=== PATIENT | female | born 1995 | race Two or more races ===

== ENCOUNTER → 2024-06-17 | Outpatient (CLI) | payer BC, SELFPAY ==
--- NOTE | 2024-06-17 16:00 | XR_ITS ---
Examination: Breast ultrasound, unilateral, right Date and time of exam: June 17, 2024 1557 hrs. Indications: Breast sonography November 14, 2023 right breast 4:00 nodule 7 mm Technique: Real-time starkey scale ultrasonographic imaging performed right breast including all 4 quadrants as well as nipple retroareolar and axillary region. Findings: 1:00 oval mass circumscribed 6 x 8 mm Impression: BI-RADS Category 2: Benign findings
== END | disposition home or self-care (01) ==
LOC: CDIM 15:48
PROVIDERS: PCP Registered Nurse; Referring Provider Registered Nurse; Visit Provider Registered Nurse
DX: N63.10 Unspecified lump in the right breast, unspecified quadrant (principal)
CPT/HCPCS: 76641